=== PATIENT | female | born 1995 | race Caucasian/White ===

== ENCOUNTER → 2017-08-07 | Outpatient (REF) | payer BC | LOC: M LAB REF 09:26 | PROVIDERS: ATTEND Physician Assistant | DX: J02.9 Acute pharyngitis, unspecified (principal) ==

== ENCOUNTER → 2017-08-08 | Outpatient (CLI) | payer BC ==
[2017-08-08 13:16] LABS: BASO % 0.5 % (0.0-1.0); EOS # 0.1 10^3/uL (0.0-0.50); EOS % 2.1 % (0.0-3.0); IMMATURE GRANULOCYTE % 0.2 % (0-0); LYMPH # 2.7 10^3/uL (1.5-6.5); MEAN CORPUSCULAR HEMOGLOBIN 28.4 pg (27.0-33.0); MEAN CORPUSCULAR HGB CONC 33.3 g/dl (32.0-36.5); MEAN CORPUSCULAR VOLUME 85.4 fl (80.0-96.0); MONO # 0.4 10^3/uL (0.0-0.8); MONO % 6.8 % (0.0-5.0); NEUTROPHILS # 2.8 10^3/uL (1.8-7.7); NEUTROPHILS % 45.4 % (36.0-66.0); PLATELET COUNT, AUTOMATED 305 10^3/uL (150-450); RED CELL DISTRIBUTION WIDTH 12.1 % (11.5-14.5); WHITE BLOOD COUNT 6.1 10^3/uL (4.0-10.0)
[2017-08-08 13:52] LABS: ALBUMIN 3.9 GM/DL (3.2-5.2); ALBUMIN/GLOBULIN RATIO 1.08 (1.00-1.93); ALKALINE PHOSPHATASE 62 U/L (45-117); ALT/SGPT 18 U/L (12-78); ANION GAP 7 MEQ/L (8-16); AST/SGOT 12 U/L (7-37); BILIRUBIN,TOTAL 0.2 MG/DL (0.2-1.0); BLOOD UREA NITROGEN 8 MG/DL (7-18); CALCIUM LEVEL 9.4 MG/DL (8.5-10.1); CARBON DIOXIDE LEVEL 28 MEQ/L (21-32); CHLORIDE LEVEL 106 MEQ/L (98-107); CREATININE FOR GFR 0.64 MG/DL (0.55-1.02); GLUCOSE, FASTING 92 MG/DL (70-105); POTASSIUM SERUM 4.1 MEQ/L (3.5-5.1); SODIUM LEVEL 141 MEQ/L (136-145); TOTAL PROTEIN 7.5 GM/DL (6.4-8.2)
== END ==
LOC: M WUC 09:35
PROVIDERS: ATTEND Physician Assistant
DX: R53.83 Other fatigue (principal)

== ENCOUNTER → 2020-11-10 | Outpatient (REF) | payer BC | LOC: M SFHCWAGY 16:51 | PROVIDERS: ATTEND Obstetrics & Gynecology | DX: Z22.322 Carrier or suspected carrier of Methicillin resistant Staphylococcus aureus (principal) ==

== ENCOUNTER → 2021-01-03 | Outpatient (CLI) | payer BC ==
[~2021-01-03] MED LIST: BUPR75TA5 PO; HYDR-3363 PO; SETL1TAB PO
== END ==
LOC: M LABSMTC 08:14
PROVIDERS: ATTEND Anesthesiology
DX: Z01.812 Encounter for preprocedural laboratory examination (principal); Z11.52 Encounter for screening for COVID-19

== ENCOUNTER 2021-01-08 11:41 | Day surgery (SDC) | payer BC ==
[~2021-01-08] VITALS: Ht 162.6 cm; Wt 74.6 kg
[~2021-01-08 11:41] MED LIST changes: +LIDOCAINE 1% MDV 20ML VIAL SQ PRN; +LR 1,000 ML IV ONE
[2021-01-08] MEDS ORDERED: KETOROLAC 60MG 2ML VIAL As Ordered ONE (12:04)
[2021-01-08] MEDS ORDERED: ONDANSETRON 4MG/2ML VIAL As Ordered ONE ×2 (12:04→15:25)
[2021-01-08] MEDS ORDERED: ROCURONIUM BROMIDE 50 MG/5 ML VIAL As Ordered ONE (12:04)
[2021-01-08] MEDS ORDERED: SUGAMMADEX SODIUM 500 MG/5 ML VIAL (BRIDION) As Ordered ONE (12:04)
[2021-01-08] MEDS ORDERED: ACETAMINOPHEN 1000MG 100ML IV BTL (OFIRMEV) (J0131 PER 10MG) As Ordered ONE (12:04)
[2021-01-08] MEDS ORDERED: dexameTHASONE 4 MG/ML 1ML VIAL (J1100 PER 1MG) As Ordered ONE ×2 (12:04→14:29)
[2021-01-08] MEDS ORDERED: LIDOCAINE 2% 100MG/5ML SDV (FOR ANES.) As Ordered ONE (12:04)
[2021-01-08] MEDS ORDERED: propofoL 200 MG/20 ML VIAL As Ordered ONE (12:04)
[2021-01-08] MEDS ORDERED: fentaNYL 100 MCG/2 ML INJECTION (J3010) As Ordered ONE ×3 (12:05→15:30)
[2021-01-08] MEDS ORDERED: MIDAZOLAM INJ 2MG/2ML VIAL (J2250 PER 1MG) As Ordered ONE (12:05)
[2021-01-08] MEDS ORDERED: SILVER NITRATE APPLICATOR As Ordered ONE (12:48)
[2021-01-08] MEDS ORDERED: BUPIVACAINE HCL 0.25% 30ML VIAL As Ordered ONE (12:48)
[2021-01-08] MEDS ORDERED: ESTROGENS VAGINAL CREAM 30GM As Ordered ONE (12:48)
[2021-01-08] MEDS ORDERED: SCOPOLAMINE 1MG TRANSDERMAL PATCH TOP ONE (12:55)
[2021-01-08 13:00] LABS: HEMOGLOBIN 14.4 g/dl (12.0-15.5); MEAN CORPUSCULAR HEMOGLOBIN 28.9 pg (27.0-33.0); MEAN CORPUSCULAR HGB CONC 32.7 g/dl (32.0-36.5); MEAN CORPUSCULAR VOLUME 88.2 fl (80.0-96.0); PLATELET COUNT, AUTOMATED 291 10^3/uL (150-450); RED BLOOD COUNT 4.99 10^6/uL (4.00-5.40); WHITE BLOOD COUNT 9.1 10^3/uL (4.0-10.0)
[2021-01-08 13:27] LABS: HCG, SERUM QUALITATIVE NEGATIVE (NEGATIVE)
[2021-01-08] MEDS ORDERED: METHYLENE BLUE 0.5% (5MG/ML) 10 ML AMP (PROVAYBLUE) As Ordered ONE (14:19)
--- NOTE | 2021-01-08 15:30 | ROOPDOC ---
[facility] Report Of Operation Report of Operation DATE OF PROCEDURE: 01/08/21 PREPROCEDURE DIAGNOSES: 1. Chronic pelvic pain, 2. Microperforated hymen POSTPROCEDURE DIAGNOSES: 1. Endometriosis/chronic pelvic pain 2. Status post hymenectomy. 3. 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 Operative laparoscopy with fulguration and excision of endom etriosis, and chromopertubation. 2. Hymenectomy SURGEON: Kenneth Vu DO FACOG CLEAN RICE BROKER: none ANESTHESIA: General ETA ESTIMATED BLOOD LOSS: Approximately 20 mL. COMPLICATIONS: none. INDICATIONS: 25-year-old with long-standing cyclical chronic pelvic pain and unable to place anything in the vagina secondary to a microperforated hymen. FINDINGS: 1. Superficial/peritoneal Endometriotic implants in the left posterior cul-de-sac just underneath the left uterosacral ligament and over epiploic fat o f the sigmoid colon (community health representative images were taken of each). Attempt at biopsy of the small lesions were unsuccessful given the miniscule amount of tissue. 2. Possible tubal occlusion bilaterally; very minimal fluid extruded from fallopian tubes during chromopertubation DESCRIPTION OF PROCEDURE: The patient was counseled and consented on the respective benefits, indication and alternatives of the procedures. Informed consent had been obtained in the office. IV access was accomplished, the patient was taken to the operating room. . She was placed on the operating table in the dorsal supine position. General anesthesia was administered and the airway secured without any difficulty. She was placed in the low lithotomy position. She was prepared and draped in the normal sterile fashion. A timeout was performed per protocol. A Curtis catheter was placed under sterile conditions. The hymen was stretched digitally. A Graves speculum was used to further stretch the hymen and thus inserted into the vagina. The nulliparous cervix was grasped with a single- tooth tenaculum at the level of the anterior lip of the ectocervix. Downward traction was applied. The cervix was sequentially dilated with Beto dilators up to a #16. ZUMI uterine manipulator was placed without any difficulty. The single tooth tenaculum was removed. The tenaculum sites were noted to be hemostatic. Glove switch was performed, and attention was turned to the abdomen. 5 mm umbilical incision was made with the 11 blade. Veress needle was placed into the intraperitoneal cavity without any difficulty. Intraperitoneal placement was confirmed with ease of flow of normal saline, a positive drop test, and negative return on aspiration. The opening pressure was 2 mmHg. The abdomen was insufflated with 2 L of gas. The Veress needle was removed. A size 5 mm blunt end laparoscopic cannula was placed under direct visualization into the intraperitoneal cavity. The patient was placed in steep Trendelenburg. An additional 5 mm laparoscopic cannula port site was placed in the left lower abdomen through a 5 mm incision was made with the 11 blade. Examination of the abdomen and pelvis was performed with the findings noted above. The endometriotic implants in the left posterior cul-de-sac were fulgurated with the monopolar spatula. The sigmoid epiploic fat attached endometriotic implant was loosely adherent, thus easily detached and removed with [place] graspers. Excellent hemostasis was noted and both of these operative sites. A chromopertubation was performed with the Physiq uterine manipulator. An high amount of pressure was required to achieve minimal spillage of fluid from fallopian tubes. There also may have been a mild degree of hydrosalpinx bilaterally in the distal portion of the tubes. Although this could have resulted from tubal spasm, my impression is that she is at risk for tubal factor infertility given all of these findings. This can be followed up on as an outpatient in due time with a hysterosalpingogram. The decision was made to conclude the laparoscopic portion of the procedure. Gas was released from the abdomen. The patient was taken out of Trendelenburg. The cannulas were removed. The skin incisions were closed with 4-0 Monocryl in subcuticular fashion and reinforced with Dermabond. Attention was turned back to the vagina. The previous stretch of the hymen resulted in a loose partially detached piece of hymen posteriorly. This was excised with the 11 blade, thus accomplishing a partial hymenectomy. An interrupted stitch was placed in this location with 3-0 Vicryl. Excellent hemostasis was achieved. The vaginal introitus accommodated 2-3 finger breaths of width.. All instruments were removed from the vagina Sponge, needle and instrument counts were correct per protocol. The Curtis catheter was removed. The patient tolerated the entire procedure very well. She was transferred to the PACU in good and stable condition. DO EMMA Silveira JONATHAN R. DO Jan 08, 2021 15:30
[2021-01-08] MEDS ORDERED: OXYC1TAB23 PO (15:31)
[2021-01-08] MEDS ORDERED: IBUP80TA PO (15:32)
[2021-01-08] MEDS ORDERED: COLA100C5 PO (15:32)
[2021-01-08] MEDS: fentaNYL 100 MCG/2 ML INJECTION (J3010) IV PRN ×2 (15:46→15:59)
[2021-01-08] MEDS ORDERED: oxyCODONE 5MG TAB PO PRN (16:05)
[2021-01-08] MEDS ORDERED: ONDANSETRON 4MG/2ML VIAL IV PRN (16:05)
[2021-01-08] MEDS ORDERED: LR 1,000 ML IV SCH ×2 (16:05)
[2021-01-08] MEDS ORDERED: METOCLOPRAMIDE INJ 10MG/2ML VIAL (J2765 PER 1) IV PRN (16:05)
[2021-01-08 17:25] VITALS: BP 104/58
== END 2021-01-08 17:25 | disposition home or self-care (01) ==
LOC: M SDC 11:41
PROVIDERS: ATTEND Obstetrics & Gynecology
DX: R10.2 Pelvic and perineal pain (principal); Q52.3 Imperforate hymen; N80.9 Endometriosis, unspecified; Z88.1 Allergy status to other antibiotic agents
CPT/HCPCS: 36415; 56700; 58350; 58662; 84703; 85027; 86850; 86900; 86901; 88304; J0131; J1100; J1885; J2250; J2405; J3010; Q9968

== ENCOUNTER → 2021-02-03 | Outpatient (REF) | payer BC ==
[~2021-02-03] MED LIST changes: +COLA100C5 PO; +IBUP80TA PO; -LIDOCAINE 1% MDV 20ML VIAL SQ PRN; -LR 1,000 ML IV ONE; +OXYC1TAB23 PO
== END ==
LOC: M SFHCWAGY 09:53
PROVIDERS: ATTEND Obstetrics & Gynecology
DX: Z12.4 Encounter for screening for malignant neoplasm of cervix (principal)

== ENCOUNTER → 2024-08-07 | Outpatient (REF) | payer BC ==
[2024-08-14 14:17] LABS: HPV APTIMA Not Detected (Not Detected)
== END ==
LOC: M LAB REF 12:48
PROVIDERS: ATTEND Nurse Practitioner Family
DX: Z12.4 Encounter for screening for malignant neoplasm of cervix (principal)
CPT/HCPCS: 87624; G0123

== ENCOUNTER 2025-04-07 08:11 | Outpatient (RCR) | payer BC | END 2025-04-10 | LOC: M PT 08:11 | PROVIDERS: ATTEND Nurse Practitioner Family | DX: Q52.9 Congenital malformation of female genitalia, unspecified (principal); R10.2 Pelvic and perineal pain ==

== ENCOUNTER 2025-04-28 11:30 | Outpatient (RCR) | payer BC | END 2025-05-11 | LOC: M PT 11:30 | PROVIDERS: ATTEND Nurse Practitioner Family | DX: Q52.9 Congenital malformation of female genitalia, unspecified (principal); R10.2 Pelvic and perineal pain ==

== ENCOUNTER → 2025-06-03 | Outpatient (REF) | payer BC | LOC: M SFHCWAGY 17:25 | PROVIDERS: ATTEND Nurse Practitioner Family | DX: R10.2 Pelvic and perineal pain (principal) ==

== ENCOUNTER 2025-06-04 07:45 | Outpatient (RCR) | payer BC | END 2025-06-10 | LOC: M PT 07:45 | PROVIDERS: ATTEND Nurse Practitioner Family | DX: Q52.9 Congenital malformation of female genitalia, unspecified (principal); R10.2 Pelvic and perineal pain ==

== ENCOUNTER 2025-07-02 07:45 | Outpatient (RCR) | payer BC ==
[~2025-07-02 07:45] MED LIST changes: +BUPR-363 PO; -BUPR75TA5 PO
== END 2025-07-11 ==
LOC: M PT 07:45
PROVIDERS: ATTEND Nurse Practitioner Family
DX: Q52.9 Congenital malformation of female genitalia, unspecified (principal); R10.20 Pelvic and perineal pain unspecified side

== ENCOUNTER → 2025-07-02 | Outpatient (CLI) | payer BC | LOC: M WHC 09:49 | PROVIDERS: ATTEND Nurse Practitioner Family | DX: R10.20 Pelvic and perineal pain unspecified side (principal) ==

== ENCOUNTER → 2025-07-23 | Outpatient (REF) | payer BC | LOC: M PLALAB 11:39 | PROVIDERS: ATTEND Obstetrics & Gynecology | DX: N92.6 Irregular menstruation, unspecified (principal) ==

== ENCOUNTER 2025-08-06 10:53 | Outpatient (RCR) | payer BC | END 2025-08-10 | LOC: M PT 10:53 | PROVIDERS: ATTEND Nurse Practitioner Family | DX: Q52.9 Congenital malformation of female genitalia, unspecified (principal); R10.20 Pelvic and perineal pain unspecified side ==

== ENCOUNTER 2025-08-22 09:02 | Outpatient (RCR) | payer BC | END 2025-09-10 | LOC: M PT 09:02 | PROVIDERS: ATTEND Nurse Practitioner Family | DX: Q52.9 Congenital malformation of female genitalia, unspecified (principal); R10.20 Pelvic and perineal pain unspecified side ==